=== PATIENT | female | born 1980 | race Caucasian/White ===

== ENCOUNTER → 2016-07-05 | Outpatient (CLI) | payer OTHER | LOC: HPND 07:58 | PROVIDERS: ATTEND Obstetrics & Gynecology | DX: O09.522 Supervision of elderly multigravida, second trimester (principal); O43.129 Velamentous insertion of umbilical cord, unspecified trimester; D69.6 Thrombocytopenia, unspecified | CPT/HCPCS: 76811 ==

== ENCOUNTER → 2016-08-05 | Outpatient (CLI) | payer OTHER | LOC: HPND 07:59 | PROVIDERS: ATTEND Obstetrics & Gynecology | DX: O09.523 Supervision of elderly multigravida, third trimester (principal); O43.193 Other malformation of placenta, third trimester; Z3A.28 28 weeks gestation of pregnancy | CPT/HCPCS: 76816 ==

== ENCOUNTER 2016-10-30 05:53 | Inpatient (IN) | payer OTHER ==
[2016-10-30] VITALS (60 sets, daily range): BP systolic 77–167; BP diastolic 29–121; PULSE 68–103; RESP 16–18; TEMP 96.7–99.1
[~2016-10-30] VITALS: Ht 165.1 cm; Wt 70.3 kg
[2016-10-30] MEDS ORDERED: PREN1TAB30 (06:32)
[2016-10-30] MEDS ORDERED: LIDOCAINE HCL 1% 50 ML VIAL I-DERMAL PRN (06:45)
[2016-10-30] MEDS ORDERED: MINERAL OIL 10 ML VIAL TOPICAL PRN (06:45)
[2016-10-30] MEDS ORDERED: OXYTOCIN 30 UNITS/NS 500ML PREMIX IV SCH (06:45)
[2016-10-30] MEDS ORDERED: LACTATED RINGER'S 1000 ML BOLUS IV PRN (06:45)
[2016-10-30] MEDS ORDERED: CITRIC ACID-SODIUM CITRATE LIQ 30 ML UDC PO SCH (06:45)
[2016-10-30] MEDS ORDERED: LIDOCAINE HCL 1% 50 ML VIAL INFIL PRN (06:45)
[2016-10-30] MEDS ORDERED: NS 1000 ML IV PRN (06:45)
[2016-10-30] MEDS ORDERED: NS 500 ML BOLUS IV PRN (06:45)
[2016-10-30] MEDS ORDERED: LACTATED RINGER'S 1000 ML IV SCH (06:45)
[2016-10-30] MEDS ORDERED: OXYTOCIN 30 UNITS 500ML PREMIX IV ONE (06:45)
[2016-10-30 06:47] LABS: AUTOMATED NEUTROPHIL # 5.7 TH/MM3 (1.8-7.7); BASOPHIL % 0.3 % (0.0-2.0); EOSINOPHIL # 0.1 TH/MM3 (0-0.4); EOSINOPHIL % 0.7 % (0.0-4.0); HEMATOCRIT 38.6 % (35.0-46.0); HEMO FLAGS DIFF FINAL; LYMPH % 22.9 % (9.0-44.0); LYMPHOCYTE # 1.9 TH/MM3 (1.0-4.8); MEAN CORPUSCULAR HEMOGLOBIN 34.8 PG (27.0-34.0); MEAN CORPUSCULAR HGB CONC 34.8 % (32.0-36.0); NEUT % 70.1 % (16.0-70.0); PLATELET COUNT 113 TH/MM3 (150-450); RED BLOOD COUNT 3.86 MIL/MM3 (4.00-5.30); RED CELL DISTRIBUTION WIDTH 12.6 % (11.6-17.2); WHITE BLOOD COUNT 8.2 TH/MM3 (4.0-11.0)
[2016-10-30 07:33] LABS: BACTERIA, URINE RARE /hpf; BLOOD, URINE NEG (NEG); COMMENT (UR) CULT NOT INDICATED; CULTURE IF INDICATED CULT NOT INDICATED; GLUCOSE,URINE NEG (NEG); KETONE, URINE NEG (NEG); NITRITE,URINE NEG (NEG); PH, URINE 6.5 (5.0-8.5); SQUAMOUS EPITHELIAL CELL URINE 8 /hpf (0-5); URINE COLOR YELLOW (YELLW/STRAW)
--- NOTE | 2016-10-30 08:01 | PD.LABORPN ---
Subjective Subjective Appears comfortable Objective Vital Signs Vital Signs Date Time Temp Pulse Resp B/P Pulse Ox O2 Delivery O2 Flow Rate FiO2 10/30/16 07:45 85 118/80 10/30/16 07:23 16 10/30/16 07:21 81 110/81 10/30/16 06:28 98.0 10/30/16 06:28 16 Objective Pelvic Exam: Cervix: [soft] Dilatation: [2-3cm] Effacement: [80%] Station: [-2-3 Presentation: [Vertex-] Membranes: [intact] AROM done with [place] Clear return. Uterine Contractions: [5-10 minutes] FHT's: Category: [-Cat 1 Baseline: [-] Reactive: [-] Variability: [-] Decels: [-] Assessment/Plan Assessment and Plan 36 yo at 41 weeks IOL postterm Maternal / status reassuring. AROM completed. Expectant Armando Orellana MD Oct 30, 2016 08:01
[2016-10-30] MEDS ORDERED: fentaNYL 2MCG-BUPIV 0.125% INJ 100 ML ONE ×2 (10:17→16:32)
[2016-10-30] MEDS ORDERED: ePHEDrine/NS 25 MG/5 ML SYR ONE (10:17)
--- NOTE | 2016-10-30 12:14 | HHI.HP ---
HPI Chief Complaint Intrauterine at 41+ weeks For induction of labor Date Seen: Oct 30, 2016 Travel History International Travel<30 Days: No Contact w/Intl Traveler<30Days: No Known Affected Area: No History of Present Illness HPI Meena is a 36-year-old white female para [id number] whose been followed in my office for care by an early ultrasound and Dr. Morales adds office she is 41 weeks and 1 day her cervix in the office was 1-2% efface mid position -2 medium consistency she is being brought in today for artificial rupture of membranes and possible Pitocin. Para: 0 : 2 Last Menstrual Period: Oct 30, 2016 Miscarriage: 1 History Past Medical History Narrative Medical Thrombocytopenia Obstetric History Obstetric History Rh- GBS negative Past Surgical History Narrative Surgical Augmentation mammoplasty, that the plasty, rhinoplasty, D&C Family History Family History: Negative Social History Alcohol Use: No Tobacco Use: No Substance Abuse: No Allergies-Medications (Allergen,Severity, Reaction): Coded Allergies: No Known Allergies (Unverified , 10/30/16) Home Meds Reported Medications Vit W/ Ferrous Fumara ( Vitamin 27-0.8 mg)1 Tab Tab 10/30/16 Physical Exam Vital Signs Date Time Temp Pulse Resp B/P Pulse Ox O2 Delivery O2 Flow Rate FiO2 10/30/16 11:15 82 10/30/16 11:10 85 10/30/16 11:10 79 115/69 10/30/16 11:05 84 118/62 10/30/16 11:05 86 10/30/16 11:00 87 10/30/16 11:00 82 118/62 10/30/16 10:58 79 119/60 10/30/16 10:57 16 10/30/16 10:55 79 116/70 10/30/16 10:55 90 10/30/16 10:50 80 103/83 10/30/16 10:50 79 10/30/16 10:47 91 130/62 10/30/16 10:45 91 10/30/16 10:45 18 10/30/16 10:45 88 126/73 10/30/16 10:40 80 130/72 10/30/16 10:40 86 10/30/16 10:35 78 10/30/16 10:30 83 10/30/16 10:25 85 8/12/17 10:22 83 108/71 10/30/16 09:30 98.6 10/30/16 09:29 16 10/30/16 09:28 84 119/77 10/30/16 08:00 96.7 10/30/16 07:59 16 10/30/16 07:45 85 118/80 10/30/16 07:23 16 10/30/16 07:21 81 110/81 10/30/16 06:28 98.0 10/30/16 06:28 16 Narrative GENERAL: Well-nourished, well-developed patient. SKIN: Warm and dry. HEAD: Normocephalic and atraumatic. EYES: No scleral icterus. No injection or drainage. ENT: No nasal drainage noted. Mucous membranes pink. Airway patent. NECK: Supple, trachea midline. No JVD. CARDIOVASCULAR: Regular rate and rhythm without murmurs, gallops, or rubs. RESPIRATORY: Breath sounds equal bilaterally. No accessory muscle use. BREASTS: Bilateral exam showed no masses , no retractions, no nipple discharge. ABDOMEN/GI: Abdomen soft, non-tender, bowel sounds present, no rebound, no guarding Gravid to [38] weeks size Fundal Height: [-] GENITOURINARY: External Genitalia: intact and normal in appearance BUS glands: [-] Cervix: Dilatation: 2 Effacement: [80] Station: [-2] Presentation: [-] Membranes: arom this am] Uterine Contractions: [-] FHT's: Category: [1] Baseline: [-] Reactive: [-] Variability: [-] Decels: [-] EXTREMITIES: No cyanosis or edema. BACK: Nontender without obvious deformity. No CVA tenderness. NEUROLOGICAL: Awake and alert. Motor and sensory grossly within normal limits. Five out of 5 muscle strength in all muscle groups. Normal speech. Data Data Vital Signs Reviewed: Yes Orders Complete Blood Count With Diff (10/30/16 06:17) Hold Clot (10/30/16 06:17) Abo/Rh Blood Type (10/30/16 06:17) Urinalysis - C+S If Indicated (10/30/16 06:17) Specimen To Be Collected PRN (10/30/16 06:17) Code Status (10/30/16 06:24) Vital Signs (Adult) .Per protocol (10/30/16 06:24) Activity Oob Ad April (10/30/16 06:24) Heart (10/30/16:24) Amnioinfusion (10/30/16 06:24) Urinary Catheter Management .ONCE (10/30/16 06:24) Resp Oxygen Non Rebreathe Mask (10/30/16 ) ^ Epidural / Intrathecal Infus (10/30/16 06:24) ^ Non Stress Test (10/30/16 06:24) Response To Medication .Post New Med Administration, Reaction (10/30/16 06:24) ^ Discontinue Medication (10/30/16 06:24) Lactated Ringer's 1000 Ml Inj (Lr 1000 M (10/30/16 06:45) Lactated Ringer's 1000 Ml Inj (Lr 1000 M (10/30/16 06:45) Sodium Chlorid 0.9% 500 Ml Inj (Ns 500 M (10/30/16 06:45) Sodium Chlor 0.9% 1000 Ml Inj (Ns 1000 M (10/30/16 06:45) Lidocaine 1% Inj (50 Ml) (Xylocaine 1% I (10/30/16 06:45) Citric Acid-Sodium Citrate Liq (Bicitra (10/30/16 06:45) Fentanyl Inj (Fentanyl Inj) (10/30/16 06:45) Fentanyl Inj (Fentanyl Inj) (10/30/16 06:45) Oxytocin 30 Units-500ml Premix (Pitocin (10/30/16 06:45) Lidocaine 1% Inj (50 Ml) (Xylocaine 1% I (10/30/16 06:45) Light Mineral Oil (Muri-Lube Oil) (10/30/16 06:45) Oxytocin 30 Units-500ml Premix (Pitocin (10/30/16 06:45) Fentanyl 2mcg-Bupiv 0.125% Inj (Fentanyl (10/30/16 10:17) Ephedrine/Ns 25 Mg/5 Ml Syr (Ephedrine/N (10/30/16 10:17) Labs Laboratory Tests Test 10/30/16 06:15 White Blood Count 8.2 Red Blood Count 3.86 Hemoglobin 13.4 Hematocrit 38.6 Mean Corpuscular Volume 100.0 Mean Corpuscular Hemoglobin 34.8 Mean Corpuscular Hemoglobin 34.8 Concent Red Cell Distribution Width 12.6 Platelet Count 113 Mean Platelet Volume 10.1 Neutrophils (%) (Auto) 70.1 Lymphocytes (%) (Auto) 22.9 Monocytes (%) (Auto) 6.0 Eosinophils (%) (Auto) 0.7 Basophils (%) (Auto) 0.3 Neutrophils # (Auto) 5.7 Lymphocytes # (Auto) 1.9 Monocytes # (Auto) 0.5 Eosinophils # (Auto) 0.1 Basophils # (Auto) 0.0 CBC Comment DIFF FINAL Differential Comment Urine Color YELLOW Urine Turbidity HAZY Urine pH 6.5 Urine Specific [place] 1.008 Urine Protein NEG Urine Glucose (UA) NEG Urine Ketones NEG Urine Occult Blood NEG Urine Nitrite NEG Urine Bilirubin NEG Urine Urobilinogen LESS THAN 2.0 Urine Leukocyte Esterase NEG Urine RBC 1 Urine WBC 2 Urine Squamous Epithelial 8 Cells Urine Bacteria RARE Microscopic Urinalysis Comment CULT NOT INDICATED Blood Type O NEGATIVE Band and Hold HOLD CLOT IN BB Assessment/Plan Assessment and Plan Intrauterine at 41 weeks 1 day Thrombocytopenia her platelet count is 113 at this time and we will follow this. She is seen by sample examiner as well Rh- we will check the baby's blood type and give RhoGAM if needed GBS negative Expect normal vaginal delivery Lee Christianson MD Oct 30, 2016 12:14
[2016-10-30] MEDS ORDERED: MEASLES, MUMPS, RUBELLA VACCINE 0.5 ML VIAL SQ ONE (16:00)
[2016-10-30] MEDS ORDERED: DIPHTH/TETANUS/ACEL PERTUSSIS (BOOSTER) 0.5 ML VIAL/PFS IM ONE (16:00)
[2016-10-30] MEDS ORDERED: LIDOCAINE HCL 1% 50 ML VIAL ONE (17:53)
[2016-10-30 20:31] LABS: BLOOD GAS BASE EXCESS -0.8 mmol/L (-2-2); BLOOD GAS O2 HGB SATURATION 41 % (90-100); CORD BLOOD GAS HCO3 25 mmol/L (21-29); CORD BLOOD GAS PCO2 52 mmHG (34-78); CORD BLOOD GAS PO2 22 mmHG (3.0-40.0); DRAW SITE CORD BLOOD; STAT NO
[2016-10-30] MEDS ORDERED: KETOROLAC TROMETHAMINE 30 MG/ML (IVP) VIAL IV PUSH ONE (21:30)
[2016-10-30] MEDS ORDERED: ALUMINUM/MAGNESIUM/SIMETH 30 ML CUP PO PRN (21:30)
[2016-10-30] MEDS ORDERED: oxyCODONE/ACETAMINOPHEN 5 MG/325 MG TAB PO PRN ×2 (21:30)
[2016-10-30] MEDS ORDERED: OXYTOCIN 30 UNITS-500ML PREMIX 500 ML IV ONE (21:30)
[2016-10-30] MEDS ORDERED: BENZOCAINE 20% TOPICAL SPRAY 60 ML CAN TOPICAL PRN (21:30)
[2016-10-30] MEDS ORDERED: OXYTOCIN 30 UNITS-500ML PREMIX 500 ML IV SCH (21:30)
[2016-10-30] MEDS ORDERED: DOCUSATE SODIUM 50 MG/SENNA 8.6 MG TAB PO PRN (21:30)
[2016-10-30] MEDS ORDERED: ONDANSETRON ODT 4 MG TAB PO PRN (21:30)
[2016-10-30] MEDS ORDERED: WITCH HAZEL 50%/GLYCERIN 12.5% 40 PAD JAR TOPICAL PRN (21:30)
[2016-10-30] MEDS ORDERED: ACETAMINOPHEN 325 MG TAB PO PRN (21:30)
[2016-10-30] MEDS ORDERED: SODIUM CHLORIDE 0.9% FLUSH 10 ML FLUSH IV FLUSH PRN (21:30)
[2016-10-30] MEDS ORDERED: ZOLPIDEM TARTRATE 5 MG TAB PO PRN (21:30)
--- NOTE | 2016-10-30 21:44 | PD.OB.DELI ---
Delivery Date: Oct 30, 2016 Anesthesia: Epidural Episiotomy: None Vaginal Delivery: Normal Presentation: Occiput anterior Nuchal Cord: None Delayed cord clamping (45 sec): Yes Shoulder Dystocia: Suly maneuver done : Female One Minute : 8 Five Minute : 9 Weight: 9/2 Placenta: Spontaneous delivery, Intact, 3 vessel cord Laceration: 2 deg Repair: Vicryl interrupted Additional Information Nice delivery of "Tater" Mild shoulder dystocia and Suly done with good results. Small Pop at delivery and let nursery know. On her left upper labia was completely torn apart and a repair was done with 5- 0 vicryl with really good results. Small dimpling in this area was noted. Lee Christianson MD Oct 30, 2016 21:44
[2016-10-30] MEDS: IBUPROFEN 600 MG TAB PO PRN (23:42)
--- NOTE | 2016-10-31 06:12 | HHI.OB ---
Subjective Post Day: 1 Remarks Doing well, Tolerating her dieet Pain is well controlled, Baby is doing well. Objective Vitals/I&O Vital Signs Date Time Temp Pulse Resp B/P Pulse Ox O2 Delivery O2 Flow Rate FiO2 10/30/16 23:43 102/71 10/30/16 23:43 98.3 90 18 10/30/16 21:46 90 95/74 10/30/16 21:45 16 10/30/16 21:30 80 16 128/68 10/30/16 21:15 18 10/30/16 21:15 78 127/67 10/30/16 21:00 78 130/74 10/30/16 21:00 97.4 10/30/16 20:58 18 10/30/16 20:55 83 122/76 10/30/16 20:31 84 137/56 10/30/16 20:00 81 122/73 10/30/16 19:30 96 108/72 10/30/16 18:31 95 117/71 10/30/16 18:15 18 10/30/16 18:15 99.1 10/30/16 18:02 103 120/74 10/30/16 18:01 99 167/121 10/30/16 17:01 76 120/73 10/30/16 16:40 16 10/30/16 16:30 97 121/73 10/30/16 16:25 98.8 10/30/16 16:14 18 10/30/16 16:00 80 105/56 10/30/16 15:30 18 10/30/16 15:30 85 122/75 10/30/16 15:15 77 119/72 10/30/16 14:45 91 118/64 10/30/16 14:30 90 115/78 10/30/16 14:28 98.1 18 10/30/16 14:18 80 98/70 10/30/16 14:16 70 77/29 10/30/16 14:09 87 114/69 10/30/16 14:00 84 110/72 10/30/16 13:45 78 115/75 10/30/16 13:30 18 10/30/16 13:30 68 121/81 10/30/16 13:26 78 128/67 10/30/16 13:15 74 99/52 10/30/16 13:00 75 18 98/57 10/30/16 12:30 78 101/58 10/30/16 11:15 82 10/30/16 11:10 85 10/30/16 11:10 79 115/69 10/30/16 11:05 84 118/62 10/30/16 11:05 86 10/30/16 11:00 87 10/30/16 11:00 82 118/62 10/30/16 10:58 79 119/60 10/30/16 10:57 16 10/30/16 10:55 79 116/70 10/30/16 10:55 90 10/30/16 10:50 80 103/83 10/30/16 10:50 79 10/30/16 10:47 91 130/62 10/30/16 10:45 91 10/30/16 10:45 18 10/30/16 10:45 88 126/73 10/30/16 10:40 80 130/72 10/30/16 10:40 86 10/30/16 10:35 78 10/30/16 10:30 83 10/30/16 10:25 85 10/30/16 10:22 83 108/71 10/30/16 09:30 98.6 10/30/16 09:29 16 10/30/16 09:28 84 119/77 10/30/16 08:00 96.7 10/30/16 07:59 16 10/30/16 07:45 85 118/80 10/30/16 07:23 16 10/30/16 07:21 81 110/81 10/30/16 06:28 98.0 10/30/16 06:28 16 Objective Remarks GENERAL: Well-nourished, well-developed patient. CARDIOVASCULAR: Regular rate and rhythm without murmurs, gallops, or rubs. RESPIRATORY: Breath sounds equal bilaterally. No accessory muscle use. ABDOMEN/GI: Abdomen soft, non-tender. Fundus: Firm, non-tender at umbilicus. GENITOURINARY: Light to moderate bleeding. EXTREMITIES: No cyanosis or edema, non-tender, without signs of DVT. Medications and IVs Current Medications Medications (Trade) Dose Ordered Sig/Clau Route Start Time Stop Time Status Last Admin (NS Flush) 2 ml BID IV FLUSH 10/31/16 09:00 (NS Flush) 2 ml UNSCH PRN IV FLUSH 10/30/16 21:30 (Tylenol) 650 mg Q4H PRN PO 10/30/16 21:30 (Motrin) 600 mg Q6H PRN PO 10/30/16 21:30 10/30/16 23:42 (Percocet 5-325 Mg) 1 tab Q4H PRN PO 10/30/16 21:30 (Percocet 5-325 Mg) 2 tab Q4H PRN PO 10/30/16 21:30 (Americaine 20% Top Spr) 1 spray Q4H PRN TOPICAL 10/30/16 21:30 10/30/16 23:42 (Tucks Pads) 1 applic QID PRN TOPICAL 10/30/16 21:30 10/30/16 23:43 (Thu-Colace) 2 tab Q12H PRN PO 10/30/16 21:30 (Ambien) 5 mg HS PRN PO 10/30/16 21:30 (Mag-Al Plus Susp Liq) 15 ml Q8H PRN PO 10/30/16 21:30 (Zofran Odt) 4 mg Q6H PRN PO 10/30/16 21:30 Assessment/Plan Assessment and Plan PPD #1 Thrombocytopenia platelets were 106K Rh- we will check the baby's blood type and give RhoGAM baby is positive Routine care. Lee Christianson MD Oct 31, 2016 06:12
[2016-10-31] MEDS: IBUPROFEN 600 MG TAB PO PRN ×3 (06:30→19:18)
[2016-10-31 08:00] VITALS: BP 115/77; PULSE 76; RESP 14; TEMP 97.3
[2016-10-31] MEDS ORDERED: SODIUM CHLORIDE 0.9% FLUSH 10 ML FLUSH IV FLUSH SCH (09:00)
[2016-10-31 10:11] LABS: MEAN CELL VOLUME 99.1 FL (80.0-100.0); MEAN CORPUSCULAR HEMOGLOBIN 33.9 PG (27.0-34.0); MEAN CORPUSCULAR HGB CONC 34.2 % (32.0-36.0); PLATELET COUNT 106 TH/MM3 (150-450); RED BLOOD COUNT 3.53 MIL/MM3 (4.00-5.30); RED CELL DISTRIBUTION WIDTH 12.5 % (11.6-17.2); REVIEW FLAG FINAL; WHITE BLOOD COUNT 16.9 TH/MM3 (4.0-11.0)
[2016-10-31] MEDS ORDERED: IBUP-232 PO (13:15)
[2016-10-31 20:10] VITALS: BP 112/74; PULSE 75; RESP 20; TEMP 98.3
[2016-11-01 08:00] VITALS: BP 103/72; PULSE 86; RESP 18; TEMP 97.9
--- NOTE | 2016-11-01 08:43 | HHI.OB ---
Subjective Post Day: 2 Objective Vitals/I&O Vital Signs Date Time Temp Pulse Resp B/P Pulse Ox O2 Delivery O2 Flow Rate FiO2 10/31/16 20:10 98.3 75 20 112/74 Objective Remarks GENERAL: Well-nourished, well-developed patient. CARDIOVASCULAR: Regular rate and rhythm without murmurs, gallops, or rubs. RESPIRATORY: Breath sounds equal bilaterally. No accessory muscle use. ABDOMEN/GI: Abdomen soft, non-tender. Fundus: Firm, non-tender at umbilicus. GENITOURINARY: Light to moderate bleeding. EXTREMITIES: No cyanosis or edema, non-tender, without signs of DVT. Medications and IVs Current Medications Medications (Trade) Dose Ordered Sig/Clau Route Start Time Stop Time Status Last Admin (NS Flush) 2 ml BID IV FLUSH 10/31/16 09:00 (NS Flush) 2 ml UNSCH PRN IV FLUSH 10/30/16 21:30 (Tylenol) 650 mg Q4H PRN PO 10/30/16 21:30 (Motrin) 600 mg Q6H PRN PO 10/30/16 21:30 10/31/16 19:18 (Percocet 5-325 Mg) 1 tab Q4H PRN PO 10/30/16 21:30 (Percocet 5-325 Mg) 2 tab Q4H PRN PO 10/30/16 21:30 (Americaine 20% Top Spr) 1 spray Q4H PRN TOPICAL 10/30/16 21:30 10/30/16 23:42 (Tucks Pads) 1 applic QID PRN TOPICAL 10/30/16 21:30 10/30/16 23:43 (Thu-Colace) 2 tab Q12H PRN PO 10/30/16 21:30 10/31/16 06:29 (Ambien) 5 mg HS PRN PO 10/30/16 21:30 (Mag-Al Plus Susp Liq) 15 ml Q8H PRN PO 10/30/16 21:30 (Zofran Odt) 4 mg Q6H PRN PO 10/30/16 21:30 Assessment/Plan Problem List: (1) Normal vaginal delivery Plan: ROUTINE (2) Thrombocytopenia Plan: WILL F/U POST PARTRUM Assessment and Plan PPD #2 PT DOING WELL PAIN WELL CONTROLLED WITH ORAL PAIN MEDICATION BONDING WITH INFANT Routine care. Discharge Planning DC HOME TODAY Sara Goss Nov 01, 2016 08:43
--- NOTE | 2016-11-01 08:44 | HHI.DCPOC ---
Discharge Care Plan Diagnosis: (1) Thrombocytopenia (2) Normal vaginal delivery Your Health Problems Are: Vaginal delivery Report Symptoms to Your Doctor -Temperature above 100.5 degrees -Redness, of incision or excessive or foul smelling drainage -Unusual pain or calf pain -Increased vaginal bleeding -Painful or difficulty urinating -Feelings of extreme sadness or anxiety after 2 weeks Goals to Promote Your Health * To prevent worsening of your condition and complications * To maintain your health at the optimal level Directions to Meet Your Goals Take your medications as prescribed Follow your dietary instruction Follow activity as directed Ensure plenty of rest for recovery Drink fluids for hydration Keep your appointments as scheduled Take your immunizations and boosters as scheduled If your symptoms worsen call your PCP, if no PCP go to Urgent Care Center or Emergency Room Smoking is Dangerous to Your Health. Avoid second hand smoke Call the 24-hour crisis hotline for domestic abuse at Sara Goss Nov 01, 2016 08:44
--- NOTE | 2016-11-01 08:47 | HHI.DS ---
Admission Date Oct 30, 2016 at 05:53 Discharge Date: Nov 01, 2016 Admitting Diagnosis 41 WEEK AROM/ PITOCIN THROMBOCYTOPENIA Diagnosis: (1) Normal vaginal delivery Diagnosis: Principal (2) Thrombocytopenia Diagnosis: Principal Delivery Date: Oct 30, 2016 Vaginal Delivery: Normal Infant: Female Brief History Meena is a 36-year-old white female para [id number] whose been followed in my office for care by an early ultrasound and Dr. Morales adds office she is 41 weeks and 1 day her cervix in the office was 1-2% efface mid position -2 medium consistency she is being brought in today for artificial rupture of membranes and possible Pitocin. Hospital Course AROM PITOCIN ROUTINE Pt Condition on Discharge: Good Discharge Disposition: Discharge Home Discharge Instructions Diet Instructions: As Tolerated, No Restrictions Activities You Can Perform: Shower Only-No Bath, Pelvic Rest Activities to Avoid: Strenuous Activity, Driving, Sexual Activity Follow up Referrals: MAIL ORDER SORTER - 2 Weeks @ [facility] New Medications: Ibuprofen (Ibuprofen) 600 Mg Tab 600 MG PO Q6H Pain Management #30 Ref 1 TAB Continued Medications: Vit W/ Ferrous Fumara ( Vitamin 27-0.8 mg) 1 Tab Tab Sara Goss Nov 01, 2016 08:47
== END 2016-11-01 12:01 | disposition home or self-care (01) | DRG 775 ==
LOC: H2EA 05:53 → H1EA 23:15
PROVIDERS: ADMIT Obstetrics & Gynecology; ATTEND Obstetrics & Gynecology
PROC: 10D07Z6 Extraction of Products of Conception, Vacuum, Via Natural or Artificial Opening (ICD-10-PCS; principal; 2016-10-30)
PROC: 0KQM0ZZ Repair Perineum Muscle, Open Approach (ICD-10-PCS; 2016-10-30)
PROC: 3E033VJ Introduction of Other Hormone into Peripheral Vein, Percutaneous Approach (ICD-10-PCS; 2016-10-30)
PROC: 10907ZC Drainage of Amniotic Fluid, Therapeutic from Products of Conception, Via Natural or Artificial Opening (ICD-10-PCS; 2016-10-30)
PROC: 3E0S3CZ (ICD-10-PCS; 2016-10-30)
PROC: 00HU33Z Insertion of Infusion Device into Spinal Canal, Percutaneous Approach (ICD-10-PCS; 2016-10-30)
DX: O48.0 Post-term pregnancy (principal); D69.6 Thrombocytopenia, unspecified; O99.12 Other diseases of the blood and blood-forming organs and certain disorders involving the immune mechanism complicating childbirth; O66.0 Obstructed labor due to shoulder dystocia; O70.1 Second degree perineal laceration during delivery; Z37.0 Single live birth; Z3A.41 41 weeks gestation of pregnancy
CPT/HCPCS: 59025; 81001; 82805; 85025; 85027; 85461; 86850; 86900; 86901; 90384; 90715; J2590; J2790; J7120